=== PATIENT | female | born 1955 | race Hispanic/Latino ===

== ENCOUNTER → 2022-10-13 | Outpatient (CLI) | payer MEDICARE | END | disposition home or self-care (01) | LOC: RAH 10:27 | PROVIDERS: ATTEND Internal Medicine Gastroenterology | DX: R14.0 Abdominal distension (gaseous) (principal); R10.10 Upper abdominal pain, unspecified | CPT/HCPCS: 78264; A9541 ==

== ENCOUNTER 2022-10-17 12:48 | Emergency (ER) | payer MEDICARE ==
[~2022-10-17] VITALS: Ht 149.9 cm; Wt 58.1 kg
[2022-10-17 14:15] VITALS: BP 143/62
[2022-10-17 14:57] LABS: BASOPHILS % (AUTO) 1.1 % (0.0-5.0); EOSINOPHILS % (AUTO) 2.2 % (0.0-8.0); LYMPHOCYTES % (AUTO) 33.9 % (21.0-51.0); MEAN CORPUSCULAR HGB CONC 36.1 g/dL (32.0-36.0); MEAN CORPUSCULAR VOLUME 88.7 fL (79-99); NEUTROPHILS % (AUTO) 55.4 % (40.0-77.0); PLATELET COUNT (AUTO) 88 K/uL (130-400); RED BLOOD CELL COUNT(AUTO) 4.06 MIL/uL (4.00-5.50); RED CELL DISTRIBUTION WIDTH 13.6 % (11.0-15.5); WHITE BLOOD COUNT (AUTO) 5.5 K/uL (4.8-10.8)
[2022-10-17] MEDS ORDERED: DICYCLOMINE HCL 10 MG/5 ML ML PO ONE (15:00)
[2022-10-17] MEDS ORDERED: MAG/ALUM/SIMETH 30 ML UDCUP PO ONE (15:00)
[2022-10-17] MEDS ORDERED: LIDOCAINE HCL 2% VISCOUS 15 ML UDCUP PO ONE (15:00)
[2022-10-17] MEDS ORDERED: ONDANSETRON 4MG INJ IVP ONE (15:00)
[2022-10-17 15:09] LABS: POTASSIUM 3.2 mmol/L (3.5-5.1)
[2022-10-17 15:13] LABS: ALBUMIN 3.9 g/dL (3.5-5.0); TOTAL PROTEIN, SERUM 7.9 g/dL (6.0-8.3)
[2022-10-17 15:17] LABS: PLATELET MORPHOLOGY DECREASED
[2022-10-17 17:04] LABS: APPEARANCE,URINE CLEAR (CLEAR); BILIRUBIN,URINE NEGATIVE (NEGATIVE); COLOR,URINE LIGHT-YELLOW (YELLOW); GLUCOSE, URINE (UA) NEGATIVE (NEGATIVE); KETONES,URINE NEGATIVE (NEGATIVE); LEUKOCYTE ESTERASE ,URINE NEGATIVE Leu/uL (NEGATIVE); NITRATE,URINE NEGATIVE (NEGATIVE); OCCULT BLOOD,URINE NEGATIVE (NEGATIVE); PH,URINE 5.5 (5.0-8.0); PROTEIN,URINE NEGATIVE (NEGATIVE); UROBILINOGEN,URINE 0.2 mg/dL (0.2-1.0)
[2022-10-17 17:07] LABS: RBC,URINE 0-1 /HPF (0-1); SQUAMOUS EPITHELIAL CELL,UR RARE /HPF (0-2); WBC,URINE 0-1 /HPF (0-1)
== END 2022-10-17 16:10 | disposition home or self-care (01) ==
LOC: EDH 12:48
DX: K80.20 Calculus of gallbladder without cholecystitis without obstruction (principal); I10 Essential (primary) hypertension; Z79.899 Other long term (current) drug therapy
CPT/HCPCS: 99285; 96374; 76705; 71045; 84484; 80053; 83690; 85025; 81001; 36415; 93005; J2405

== ENCOUNTER 2024-07-25 10:11 | Emergency (ER) | payer MEDICARE, OTHER ==
[~2024-07-25] VITALS: Ht 149.9 cm; Wt 59.0 kg
[2024-07-25 10:19] VITALS: BP 204/97; PULSE 84; RESP 18; TEMP 97.7
[2024-07-25 10:44] LABS: APPEARANCE,URINE CLEAR (CLEAR); BILIRUBIN,URINE NEGATIVE (NEGATIVE); COLOR,URINE LIGHT-YELLOW (YELLOW); GLUCOSE, URINE (UA) NEGATIVE (NEGATIVE); KETONES,URINE NEGATIVE (NEGATIVE); LEUKOCYTE ESTERASE ,URINE NEGATIVE Leu/uL (NEGATIVE); NITRATE,URINE NEGATIVE (NEGATIVE); OCCULT BLOOD,URINE NEGATIVE (NEGATIVE); PROTEIN,URINE NEGATIVE (NEGATIVE); UROBILINOGEN,URINE 0.2 mg/dL (0.2-1.0)
[2024-07-25 10:45] LABS: ADD UA MICROSCOPIC NO
[2024-07-25 10:58] LABS: BASOPHILS # (AUTO) 0.04 K/uL (0.00-0.20); BASOPHILS % (AUTO) 0.8 % (0.0-5.0); EOSINOPHILS # (AUTO) 0.11 K/uL (0.00-0.70); EOSINOPHILS % (AUTO) 2.2 % (0.0-8.0); HEMATOCRIT 36.3 % (36-48); IMMATURE GRANULOCYTE ABSOLUTE 0.01 K/uL (0-1); LYMPHOCYTES # (AUTO) 1.1 K/uL (1.0-4.8); LYMPHOCYTES % (AUTO) 21.9 % (21.0-51.0); MEAN CORPUSCULAR HEMOGLOBIN 32.6 pg (27.0-33.0); MEAN CORPUSCULAR VOLUME 93.3 fL (79-99); MONOCYTES # (AUTO) 0.4 K/uL (0.1-1.0); MONOCYTES % (AUTO) 7.2 % (3.0-13.0); NEUTROPHILS # (AUTO) 3.4 K/uL (1.8-7.7); NEUTROPHILS % (AUTO) 67.7 % (40.0-77.0); PLATELET COUNT (AUTO) 75 K/uL (130-400); RED BLOOD CELL COUNT(AUTO) 3.89 MIL/uL (4.00-5.50)
[2024-07-25 11:01] LABS: CREATININE 0.7 mg/dL (0.5-1.0); POTASSIUM 3.5 mmol/L (3.5-5.1)
[2024-07-25 11:23] LABS: INR 1.18 (0.85-1.15)
[2024-07-25 11:24] LABS: PARTIAL THROMBOPLASTIN TIME 33.3 SEC (26.3-35.5)
[2024-07-25] MEDS: morPHINE 2 MG SYG IVP ONE (11:24)
[2024-07-25] MEDS: ondanSETRON 4MG INJ IVP ONE (11:24)
[2024-07-25] MEDS ORDERED: IOHEXOL-350 75 ML VIAL IV ONE (12:19)
--- NOTE | 2024-07-25 12:27 | HMCIMG ---
Exam Type: CHEST 1VW Clinical Information: sob Comparison: None Findings: The lungs are clear of infiltrates. The heart is normal in size. The bony and soft tissue structures of the chest are unremarkable. Impression: Clear lungs.
--- NOTE | 2024-07-25 12:57 | HMCIMG ---
Exam Type: CT ABDOMEN AND PELVIS WITH ORAL AND IV CONTRAST Clinical Information: r/o incarcerated hernia Comparison: Contrast: 100 cc's Isovue 370 IV, no complications or adverse reactions Technique: Routine helical scanning at 5mm collimation through the abdomen and pelvis was performed after oral contrast administration. The examination was done before and after IV contrast administration as well. Intermediate and 7 minute delayed post IV contrast administration images were performed, for adequate contrast distention of the urinary collecting systems, ureters and the urinary bladder. CT Dose Index (CTDI): 4.38 mGy Dose Length Product (DLP): 197.9 total mGy-cm Findings: No evidence of nephro or ureterolithiasis is found. No hydronephrosis or ureteral dilatation is seen. The lung bases are clear. The stomach is unremarkable. It shows no wall thickening. No gross ulceration is seen. It is not overly distended. There are no surrounding inflammatory changes. No wall lesions are identified to suggest cancer. The spleen is enlarged. The liver is irregular in contour consistent with given history of cirrhosis. There are splenic hilar varices and varices of the gastroesophageal junction. There is ascites. These findings are consistent with portal venous hypertension. The pancreas shows normal anatomy. It is not fatty replaced. It shows no lesions. The pancreatic duct is not dilated. The gallbladder is surgically absent. The adrenal glands are unremarkable. There is no enlargement. No lesions are noted. The appendix is unremarkable. It shows no evidence of inflammation. No appendicolith is seen. The small bowel is unremarkable. There is no evidence of dilatation to suggest obstruction. No evidence of adynamic ileus is seen. There is no small bowel wall thickening to suggest enteritis. There is diverticulosis. There is no evidence of acute inflammation to suggest diverticulitis. The colon is otherwise unremarkable. The urinary bladder is unremarkable. There is no wall thickening to suggest tumor or inflammation. There are no intraluminal calculi. There are no diverticula. There is no evidence of chronic bladder outlet obstruction. There is no evidence of urinary bladder distention to suggest urinary retention. Umbilical hernia is seen containing only peritoneal fat and minimal ascitic fluid. The bony and vascular structures are unremarkable for the patient's age. IMPRESSION: Findings consistent with cirrhosis and portal venous hypertension. This study was performed using dose reduction techniques to include automated exposure control and/or adjustment of the mA and/or kV according to patient size to include automated exposure control and/or adjustment of the mA and/or kV according to patient size.
[2024-07-25] MEDS ORDERED: POLY17PO4 PO (14:14)
--- NOTE | 2024-07-25 14:21 | ERN ---
General Chief Complaint: Abdominal Pain Stated Complaint: SENT BY DR HERNIA Time Seen by MD: 10:21 Time Seen by Midlevel: 10:21 Source: patient History of Present Illness Initial Comments Patient is a 68-year-old female with a past medical history of liver cirrhosis presenting to the emergency department with an umbilical hernia. The patient was seen at her primary care doctor's office today for pain over her umbilical region. They performed an ultrasound which revealed a hernia. She was sent to the ER to rule out incarceration/obstruction. On arrival patient does report chronic constipation but states her umbilical pain has been worsening over the last couple of days. Denies any nausea, vomiting, or any other symptoms at this time. Allergies: Coded Allergies: dexamethasone (Unverified Allergy, Unknown, 10/17/22) Home Meds Active Scripts Polyethylene Glycol 3350 (Miralax) 17 Gram Powd.pack, 17 GM PO DAILY for constipation, #20 PACKET 0 Refills Prov:YAZAN MODI 07/25/24 Past Medical History Past Medical History: Hypertension, Hypothyroid, Kidney Stone Medical History Other: OSTEOPOROSIS, Past Surgical History: Cholecystectomy Surgical History Other: SINUS SX ROS Dictation CONSTITUTIONAL: Negative except for HPI HEAD/FACE: Negative except for HPI EENT: Negative except for HPI RESPIRATORY: Negative except for HPI GASTROINTESTINAL/ABDOMINAL: Negative except for HPI GENITOURINARY: Negative except for HPI MUSCULOSKELETAL: Negative except for HPI INTEGUMENTARY: Negative except for HPI NEUROLOGICAL/PSYCH: Negative except for HPI HEMATOLOGIC/LYMPHATIC: Negative except for HPI All Systems Negative, Except as noted above. 13 point review of systems assessed and all negative except for above. Physical Exam Physical Exam Dictation Vital Signs reviewed General Appearance: Alert, oriented x 3, no acute distress, well developed, nourished. Head and Face: non-traumatic. Eyes: PERRL, pink conjunctivas, eyelid no trauma, anterior chamber with arcus senilis. Ears: Pinnas intact and no signs of trauma or erythema ear canals clear and no discharge TM no erythema Nose: No discharge, no bleeding. Oropharynx: Mouth normal, tongue pink, pharynx clear,no erythema, tonsils no exudates, no abscesses noted, mucous membrane moist Neck: Supple, non-tender, no thyromegaly, no masses, no JVD, no bruits Breast:Deferred Chest:No tenderness, no crepitus, no paradoxical movement, no retractions Lungs:Clear, well-ventilated, symmetric, no rales, no wheezing, no rhonchi, no stridor, good breath sounds bilaterally Heart: Regular rate, regular rhythm, no murmur, no gallops Vascular: no peripheral edema, Abdomen: Soft, positive bowel sounds, nondistended, no guarding, Mild Periumbilical tenderness, no rebound, no masses no hepatomegaly, no splenomegaly, no Márquez's sign, no hernias. Rectal: Deferred Genital: Deferred Neurological: Normal speech, motor function intact, sensory function intact Musculoskeletal: Neck nontender, full range of motion, back nontender, full range of motion, Extremities: nontender, full range of motion Skin: Color pink, dry, no turgor, no rash, no lacerations, no abrasions, no contusions. Lymphatic: Deferred Results Laboratory and Microbiology Lab and Micro Result Laboratory Tests Test 07/25/24 10:35 07/25/24 10:45 Urine Color LIGHT-YELLOW (YELLOW) Urine Appearance CLEAR (CLEAR) Urine pH 7.0 (5.0-8.0) Urine Specific [place] 1.011 (1.001-1.031) Urine Protein NEGATIVE mg/dL (NEGATIVE) Urine Glucose (UA) NEGATIVE mg/dL (NEGATIVE) Urine Ketones NEGATIVE mg/dL (NEGATIVE) Urine Occult Blood NEGATIVE (NEGATIVE) Urine Nitrate NEGATIVE (NEGATIVE) Urine Bilirubin NEGATIVE mg/dL (NEGATIVE) Urine Urobilinogen 0.2 mg/dL (0.2-1.0) Urine Leukocyte Esterase NEGATIVE Arnaldo/uL White Blood Count 5.0 K/uL (4.8-10.8) Red Blood Count 3.89 MIL/uL (4.00-5.50) L Hemoglobin 12.7 g/dL (12.0-16.0) Hematocrit 36.3 % (36-48) Mean Corpuscular Volume 93.3 fL (79-99) Mean Corpuscular Hemoglobin 32.6 pg (27.0-33.0) Mean Corpuscular Hemoglobin Concent 35.0 g/dL (32.0-36.0) Red Cell Distribution Width 15.0 % (11.0-15.5) Platelet Count 75 K/uL (130-400) L Mean Platelet Volume 10.7 fL (7.5-10.5) H Immature Granulocyte % (Auto) 0.2 % (0-1) Neutrophils (%) (Auto) 67.7 % (40.0-77.0) Lymphocytes (%) (Auto) 21.9 % (21.0-51.0) Monocytes (%) (Auto) 7.2 % (3.0-13.0) Eosinophils (%) (Auto) 2.2 % (0.0-8.0) Basophils (%) (Auto) 0.8 % (0.0-5.0) Neutrophils # (Auto) 3.4 K/uL (1.8-7.7) Lymphocytes # (Auto) 1.1 K/uL (1.0-4.8) Monocytes # (Auto) 0.4 K/uL (0.1-1.0) Eosinophils # (Auto) 0.11 K/uL (0.00-0.70) Basophils # (Auto) 0.04 K/uL (0.00-0.20) Absolute Immature Granulocyte (auto 0.01 K/uL (0-1) Nucleated Red Blood Cells 0.0 % (0.0-0.19) Prothrombin Time 13.0 SEC (9.6-11.6) H Prothromb Time International Ratio 1.18 (0.85-1.15) H Activated Partial Thromboplast Time 33.3 SEC (26.3-35.5) Sodium Level 145 mmol/L (136-145) Potassium Level 3.5 mmol/L (3.5-5.1) Chloride Level 108 mmol/L (101-111) Carbon Dioxide Level 27 mmol/L (21-32) Blood Urea Nitrogen 7 mg/dL (7-18) Creatinine 0.7 mg/dL (0.5-1.0) Glomerular Filtration Rate Calc 93 mL/min (>90) Random Glucose 99 mg/dL (70-105) Lactic Acid Level 1.3 mmol/L (0.8-2.5) Total Calcium 8.8 mg/dL (8.5-10.1) Troponin I High Sensitivity 7 ng/L (4-50) Labs Reviewed?: Yes MDM MDM: Patient is a 68-year-old female with a past medical history of liver cirrhosis presenting to the emergency department with an umbilical hernia. The patient was seen at her primary care doctor's office today for pain over her umbilical region. They performed an ultrasound which revealed a hernia. She was sent to the ER to rule out incarceration/obstruction. On arrival patient does report chronic constipation but states her umbilical pain has been worsening over the last couple of days. Denies any nausea, vomiting, or any other symptoms at this time. On physical examination the patient was in no acute distress. Initial vital signs are stable. Abdominal examination shows mild periumbilical tenderness. There appears to be a small periumbilical hernia that is easily reducible. Your CBC and chemistries are unremarkable. A CT scan of the abdomen/pelvis was obtained to rule out incarceration however her CT scan shows a small umbilical hernia containing only preperitoneal fat and minimal ascitic fluid. The case was discussed with general surgeon on-call Dr. Brady who states there was no need for emergent intervention at this time. The patient may follow up outpatient. This was discussed with the patient and she was given instructions on how to avoid or worsening hernia. Patient may take [id number] medication for pain. She will ultimately have to follow up with General surgery outpatient for further evaluation. Differential diagnosis: Incarcerated hernia, bowel obstruction, urinary tract infection There are no social concerns with this patient. Prescription drug management Prescriptions will include: None Medical management and examination interpretation discussions were had by me with other qualified healthcare professionals as indicated for the patient's care. ED Course Orders Procedure Category Date Status Time Cbc With Differential LAB 07/25/24 Complete 10:22 Basic Metabolic Panel LAB 07/25/24 Complete 10:22 Pt And Ptt LAB 07/25/24 Complete 10:22 Troponin I High LAB 07/25/24 Complete Sensitivity 10:22 Lactic Acid LAB 07/25/24 Complete 10:22 Chest 1vw RAD 07/25/24 Resulted 10:22 Ct Abdomen/Pelvis CT 07/25/24 Resulted W/Contrast 10:22 Morphine 2mg Syg PHA 07/25/24 Complete (Morphine 2mg Syg) 10:30 Ondansetron 4mg Inj PHA 07/25/24 Complete (Zofran 4mg Inj) 10:30 Type And Screen BBK 07/25/24 Complete 10:22 Urinalysis Profile LAB 07/25/24 Complete 10:37 Iohexol (Omnipaque) PHA 07/25/24 Complete 12:19 Current Medications Medications (Trade) Dose Ordered Sig/Syeda Route PRN Reason Start Time Stop Time Status Last Admin Dose Admin Iohexol (Omnipaque) 75 ml STK-MED ONCE IV 07/25/24 12:19 07/25/24 12:19 DC Morphine Sulfate (morPHINE 2MG SYG) 2 mg ONCE ONCE IVP 07/25/24 10:30 07/25/24 10:31 DC 07/25/24 11:24 Ondansetron HCl (zoFRAN 4MG INJ) 4 mg ONCE ONCE IVP 07/25/24 10:30 07/25/24 10:31 DC 07/25/24 11:24 Vital Signs Date Time Temp Pulse Resp B/P (MAP) Pulse Ox O2 Delivery O2 Flow Rate FiO2 07/25/24 10:19 97.7 84 18 204/97 99 Room Air 0 [facility] [address] [place] [id number] IMAGING REPORT Signed PATIENT: GHADA ORR MR#: [id number] : 1955 SEX: F AGE: 68 LOCATION: [facility] ORDER 1024 STATUS: REG ER REPORT#: [id number] SERVICE 1022 REASON: r/o incarcerated hernia ORDERING PHYSICIAN: YAZAN MODI PROCEDURE: ABD PEL W - CT ABDOMEN/PELVIS W/CONTRAST Exam Type: CT ABDOMEN AND PELVIS WITH ORAL AND IV CONTRAST Clinical Information: r/o incarcerated hernia Comparison: Contrast: 100 cc's Isovue 370 IV, no complications or adverse reactions Technique: Routine helical scanning at 5mm collimation through the abdomen and pelvis was performed after oral contrast administration. The examination was done before and after IV contrast administration as well. Intermediate and 7 minute delayed post IV contrast administration images were performed, for adequate contrast distention of the urinary collecting systems, ureters and the urinary bladder. CT Dose Index (CTDI): 4.38 mGy Dose Length Product (DLP): 197.9 total mGy-cm Findings: No evidence of nephro or ureterolithiasis is found. No hydronephrosis or ureteral dilatation is seen. The lung bases are clear. The stomach is unremarkable. It shows no wall thickening. No gross ulceration is seen. It is not overly distended. There are no surrounding inflammatory changes. No wall lesions are identified to suggest cancer. The spleen is enlarged. The liver is irregular in contour consistent with given history of cirrhosis. There are splenic hilar varices and varices of the gastroesophageal junction. There is ascites. These findings are consistent with portal venous hypertension. The pancreas shows normal anatomy. It is not fatty replaced. It shows no lesions. The pancreatic duct is not dilated. The gallbladder is surgically absent. The adrenal glands are unremarkable. There is no enlargement. No lesions are noted. The appendix is unremarkable. It shows no evidence of inflammation. No appendicolith is seen. The small bowel is unremarkable. There is no evidence of dilatation to suggest obstruction. No evidence of adynamic ileus is seen. There is no small bowel wall thickening to suggest enteritis. There is diverticulosis. There is no evidence of acute inflammation to suggest diverticulitis. The colon is otherwise unremarkable. The urinary bladder is unremarkable. There is no wall thickening to suggest tumor or inflammation. There are no intraluminal calculi. There are no diverticula. There is no evidence of chronic bladder outlet obstruction. There is no evidence of urinary bladder distention to suggest urinary retention. Umbilical hernia is seen containing only peritoneal fat and minimal ascitic fluid. The bony and vascular structures are unremarkable for the patient's age. IMPRESSION: Findings consistent with cirrhosis and portal venous hypertension. This study was performed using dose reduction techniques to include automated exposure control and/or adjustment of the mA and/or kV according to patient size to include automated exposure control and/or adjustment of the mA and/or kV according to patient size. DICTATED BY: ANITRA MANNING MD DATE: 07/25/24 1253 ELECTRONICALLY SIGNED BY: ANITRA MANNING MD DATE: 07/25/24 1257 DX & DISP Disposition: Discharge Departure Impression: Primary Impression: Umbilical hernia without obstruction or gangrene Condition: Stable Scripts Polyethylene Glycol 3350 (Miralax) 17 Gram Powd.pack 17 GM PO DAILY for constipation, #20 PACKET 0 Refills Prov: YAZAN MODI 07/25/24 Additional Instructions: Your blood work today is unremarkable. Your urinalysis does not show any evidence of infection. Your CT scan of the abdomen/pelvis with contrast reveals a small umbilical hernia containing only fat and minimal ascitic fluid. This was discussed with general surgeon Dr. Brady who states there was no need for emergent intervention at this time. He advises that you follow up outpatient in his clinic for further evaluation. You will need to follow up with your primary care doctor for further evaluation. Referrals: ROOSEVELT ROBERTS MD (PCP) CANDIDO BRADY MD Time of Disposition: 14:13 I have reviewed the case, and I agree with, Diagnosis and Plan I performed the substantive portion of the visit. I have reviewed and personally made and approve the management plan that is documented in the note by myself or the TRELL. I acknowledge for responsibility for the patient's management plan. YAZAN MODI Jul 25, 2024 14:21 ARCHIE BARRIOS DO Jul 25, 2024 18:42
== END 2024-07-25 15:40 | disposition home or self-care (01) ==
LOC: EDH 10:11
DX: K42.9 Umbilical hernia without obstruction or gangrene (principal); E03.9 Hypothyroidism, unspecified; I10 Essential (primary) hypertension; K59.09 Other constipation; M81.0 Age-related osteoporosis without current pathological fracture; Z79.01 Long term (current) use of anticoagulants; Z90.49 Acquired absence of other specified parts of digestive tract
CPT/HCPCS: 99285; 74177; 96374; 71045; 96375; 84484; 80048; 85025; 85610; 85730; 86850; 86900; 86901; 83605; 81003; 36415; J2270; J2405; Q9967

== ENCOUNTER 2024-11-15 05:40 | Day surgery (SDC) | payer OTHER ==
[2024-11-14 14:39] VITALS: BP 132/60; PULSE 80; RESP 18; TEMP 98.2
[2024-11-14 14:41] LABS: ADD UA MICROSCOPIC YES; APPEARANCE,URINE CLEAR (CLEAR); BILIRUBIN,URINE NEGATIVE (NEGATIVE); COLOR,URINE COLORLESS (YELLOW); GLUCOSE, URINE (UA) NEGATIVE (NEGATIVE); KETONES,URINE NEGATIVE (NEGATIVE); LEUKOCYTE ESTERASE ,URINE NEGATIVE Leu/uL (NEGATIVE); NITRATE,URINE NEGATIVE (NEGATIVE); OCCULT BLOOD,URINE NEGATIVE (NEGATIVE); PH,URINE 6.5 (5.0-8.0); PROTEIN,URINE NEGATIVE (NEGATIVE); UROBILINOGEN,URINE 0.2 mg/dL (0.2-1.0)
[2024-11-14 14:42] LABS: BASOPHILS % (AUTO) 1.2 % (0.0-5.0); EOSINOPHILS # (AUTO) 0.25 K/uL (0.00-0.70); EOSINOPHILS % (AUTO) 3.1 % (0.0-8.0); HEMATOCRIT 37.4 % (36-48); IMMATURE GRANULOCYTE ABSOLUTE 0.03 K/uL (0-1); LYMPHOCYTES # (AUTO) 2.1 K/uL (1.0-4.8); LYMPHOCYTES % (AUTO) 25.9 % (21.0-51.0); MEAN CORPUSCULAR HEMOGLOBIN 32.4 pg (27.0-33.0); MEAN CORPUSCULAR VOLUME 95.4 fL (79-99); MONOCYTES # (AUTO) 0.7 K/uL (0.1-1.0); MONOCYTES % (AUTO) 8.8 % (3.0-13.0); NEUTROPHILS % (AUTO) 60.6 % (40.0-77.0); PLATELET COUNT (AUTO) 131 K/uL (130-400); RED BLOOD CELL COUNT(AUTO) 3.92 MIL/uL (4.00-5.50); RED CELL DISTRIBUTION WIDTH 14.4 % (11.0-15.5); WHITE BLOOD COUNT (AUTO) 8.2 K/uL (4.8-10.8)
[2024-11-14 14:46] LABS: BACTERIA,URINE RARE /HPF (None Seen); SQUAMOUS EPITHELIAL CELL,UR RARE /HPF (0-2)
[2024-11-14 14:50] LABS: INR 1.28 (0.85-1.15); PROTHROMBIN TIME 13.2 SEC (9.6-11.6)
[2024-11-14 14:58] LABS: ALBUMIN 2.8 g/dL (3.5-5.0); BILIRUBIN,TOTAL 1.2 mg/dL (0.2-1.0); CREATININE 0.8 mg/dL (0.5-1.0); TOTAL PROTEIN, SERUM 6.8 g/dL (6.0-8.3)
[2024-11-14 15:06] LABS: POTASSIUM 2.8 mmol/L (3.5-5.1)
--- NOTE | 2024-11-14 15:25 | NUR ---
RE: LABS REPORTED PT 13.2/INR 1.28, K 2.8. ALSO INFORMED DR CRAWFORD THAT PATIENT STARTED LEVOFLOXACIN YESTERDAY AND PROMETHAZINE FOR COUGH. RECEIVED ORDERS TO HAVE PATIENT EAT 3-4 BANANAS TONIGHT AND REPEAT POTASSIUM IN AM AND CXR IN AM.
--- NOTE | 2024-11-14 16:45 | NUR ---
SPOKE WITH PATIENT AND INSTRUCTED HER TO EAT 3-4 BANANAS THIS EVENING, PATIENT VERBALIZED UNDERSTANDING
--- NOTE | 2024-11-14 19:23 | EKG ---
[facility] Test Date: 2024-11-14 Test Time: 14:25:04 Pat Name: GHADA GARCIADep[facility] Gender: F Pump Installer: [id number] : 1955 Requested By: JUAN DAVID CRAWFORD Order Number: [id number] Reading MD: Emmanuel Mcdaniel Measurements Intervals [place] Rate: 76 P: 27 OR: 165 QRS: -11 QRSD: 90 T: 3 QT: 414 QTc: 465 Interpretive Statements Sinus rhythm Compared to ECG 10/17/2022 14:47:45 No significant changes Electronically Signed On 11-18-2024 22:10:49 CDT by Emmanuel Mcdaniel Please click the below link to view image of tracing.
[~2024-11-15] VITALS: Ht 149.9 cm; Wt 63.4 kg
[2024-11-15] VITALS (14 sets, daily range): BP systolic 100–150; BP diastolic 51–75; PULSE 72–90; RESP 16–20; TEMP 97.4–97.6
[~2024-11-15 05:40] MED LIST: ALEN70TA80 PO; AMLO-257 PO; FURO20TA4 PO; GABA-529 PO; LEVO-70 PO; LEVO50CA5 PO; LISI20TA24 PO; MILK175T2 PO; PIOG15TA66 PO; PROM6.2523 PO
[2024-11-15] MEDS ORDERED: ceFAZolin SODIUM 2 GM VIAL ONE (06:19)
[2024-11-15] MEDS: LACTATED RINGERS 1000ML 1,000 ML IV ONE (06:52)
[2024-11-15] MEDS ORDERED: BUPIvacaine/PF 0.25% 30ML VIAL IJ ONE (07:34)
--- NOTE | 2024-11-15 09:29 | HMCIMG ---
CHEST 1VW HISTORY: Cough COMPARISON: 07/25/2024 FINDINGS: A frontal projection of the chest was obtained. No acute pulmonary infiltrates is seen. The heart is borderline enlarged. Prominent interstitial markings are seen. Aortic calcifications are seen. Degenerative changes are seen. IMPRESSION: 1. No acute pulmonary infiltrate is seen.
[2024-11-15] MEDS ORDERED: FENTanyl CITRate PF 50 MCG/1 ML 2ML VIAL ONE ×3 (09:41→12:00)
[2024-11-15] MEDS ORDERED: rocuRONium bROMide 10MG/1ML 5ML VL ONE (09:41)
[2024-11-15] MEDS ORDERED: proPOFol 10 MG/ML 20ML VIAL IV ONE (09:41)
[2024-11-15] MEDS ORDERED: ondanSETRON 4MG INJ ONE (09:41)
[2024-11-15] MEDS ORDERED: MIDAZOLAM HCL 1 MG/ML 2ML VIAL ONE (09:41)
[2024-11-15] MEDS ORDERED: phenylEPHRINE HCL 10 MG/ML 1ML VIAL IV ONE (10:20)
[2024-11-15] MEDS ORDERED: ROPivacaine 0.5% 5MG/ML 30ML ONE ×2 (10:23→10:41)
[2024-11-15] MEDS ORDERED: LIDOCAINE 2%-EPI 1:200,000 20 ML VIAL IJ ONE (10:23)
[2024-11-15] MEDS ORDERED: acetaMINOPHEN 0 ML ONE (10:57)
[2024-11-15] MEDS: BUPIvacaine/PF 0.25% 30ML VIAL IJ ONE (11:05)
[2024-11-15] MEDS ORDERED: SUGAMMADEX SODIUM 200 MG/2 ML VIAL IV ONE (11:45)
[2024-11-15] MEDS ORDERED: ALBUMIN (HUMAN) 5% 250 ML IV ONE (11:45)
[2024-11-15] MEDS: ketOROlac 15MG/ML VIAL (15MG/ML) ONE (12:25)
[2024-11-15] MEDS: FENTanyl CITRate PF 50 MCG/1 ML 2ML VIAL ONE (12:26)
[2024-11-15] MEDS: metoCLOPRAmide 10 MG/2 ML VIAL ONE (12:27)
--- NOTE | 2024-11-15 13:16 | OP ---
Operative Note: DATE OF PROCEDURE: 11/15/24 SURGEON: JUAN DAVID CRAWFORD MD SOFTWARE EDUCATOR: [] PREOPERATIVE DIAGNOSIS: Umbilical hernia POSTOPERATIVE DIAGNOSIS: 2cm umbilical hernia incarcerated, large volume ascites PROCEDURE: Robotic umbilical hernia repair with mesh placement, aspiration of 1.5 L of ascites fluid INDICATIONS: Patient with symptomatic umbilical hernia DESCRIPTION OF PROCEDURE: Patient is brought to the operating room placed on the operating table in the supine position. Once general endotracheal anesthesia is achieved patient's abdomen is prepped and draped in sterile fashion. We created a small brie incision in left upper quadrant at Mena's point. Under direct visualization with Optiview went through the abdominal wall and entered the abdominal cavity. And pneumoperitoneum obtained. And then under direct visualization proceeded to introduce other 8 mm trochars one in the right upper quadrant, another one at the epigastric region. And then switched out the 5 mm trocar from the left upper quadrant to an 8 mm trocar. We then brought the robot over top of the patient's right flank and proceeded to dock it. We then proceeded to develop the peritoneal flap with the scissors with cautery was started before the defect and then went past the defect took down the hernia sac with sharp and blunt dissection. Once down all the hernia sac was reduced and we had developed our peritoneal flap past the level of the defect then proceeded to introduce the ruler and measured the defect at 2 cm. We then proceeded to introduce an 7.8 cm Phasix mesh that will give us enough overlay. And then with OV lock proceeded to close the defect primarily. Once the defect was completely closed we proceeded to place the mesh and the underlay fashion. And secured it to the abdominal wall using 2 OV lock. And then closed our peritoneal flap to cover the mesh completely. The peritoneal flap was closed with a 2 OV lock as well. No bleeding was observed no injuries noted. There was a large volume of fluid within the abdomen. The looked murky. Decision is made to suction out with a hand-held laparoscopic suction 1.5 L of fluid and sent it for cytology and cultures. The robot is undocked all needles are removed from the abdomen. We removed our trochars. Skin incisions were closed with 4-0 Monocryl running subcuticular fashion and Dermabond. Patient tolerated the procedure well ESTIMATED BLOOD LOSS: 5 cc Devices left in place: Circular mesh 7.8 cm diameter. See implant report for detail. Anesthesia: General endotracheal Complications: None immediate Specimens removed: Culture and cytology from peritoneal fluid JUAN DAVID CRAWFORD MD November 15, 2024 13:16
== END 2024-11-15 13:34 | disposition home or self-care (01) ==
LOC: DAH 05:40
PROVIDERS: ATTEND Student in an Organized Health Care Education/Training Program
DX: K42.0 Umbilical hernia with obstruction, without gangrene (principal); R18.8 Other ascites; K74.60 Unspecified cirrhosis of liver; I10 Essential (primary) hypertension; J32.8 Other chronic sinusitis; E07.9 Disorder of thyroid, unspecified; Z79.01 Long term (current) use of anticoagulants; Z90.49 Acquired absence of other specified parts of digestive tract; Z79.899 Other long term (current) drug therapy; Z79.890 Hormone replacement therapy; Z88.8 Allergy status to other drugs, medicaments and biological substances
CPT/HCPCS: 80053; 85025; 85610; 81001; 36415 ×2; 93005; 49592; 49082; 64488; 84132; 87071; 87076; 87205; 88108; 88305; 71045; A6260; J1885; C1781; A4663; J7030; J7120 ×2; P9045; J3010 ×4; J0665 ×2; J3490 ×2; J2250; J2704; J2405; J2765; J2795 ×2; J2371; J0690 ×2; A4930; A4215; A4223; A4222; A4221

== ENCOUNTER → 2024-12-03 | Outpatient (CLI) | payer OTHER ==
--- NOTE | 2024-12-03 09:50 | NUR ---
U/S GD PARACENTESIS PROCEDURE PERFORMED BY DR Margie NASH. PUNCTURE SITE LLQ AND PATIENT TOLERATED PROCEDURE WELL. TOTAL REMOVED 3.2 LITERS OF CLOUDY YELLOW FLUID. END OF PROCEDURE AT 0920. CATHETER REMOVED AND DRESSING APPLIED. NO BLEEDING NOTED. DISCHARGE INSTRUCTIONS GIVEN TO PATIENT AND VERBALIZED UNDERSTANDING. DISCHARGED VIA AMBULATION AT 0950. AAO X3 WITH NO C/O PAIN.
--- NOTE | 2024-12-03 17:38 | HMCIMG ---
US ABDOMINAL PARACENTESIS IR HISTORY: No additional history given. COMPARISON: None TECHNIQUE: Informed consent was obtained. Risks and benefits were explained to the patient. A timeout was performed. Patient was prepped and draped in a sterile fashion. Local anesthetics was given as required. Under ultrasound guidance, ascites fluid was localized. Paracentesis was performed. FINDINGS: 3.2 L of yellowish fluid was aspirated. Less than 2 cc blood loss is noted. Patient tolerated procedure without complication. Patient left the department in good condition. IMPRESSION: 1. Uncomplicated ultrasound-guided paracentesis.
== END | disposition home or self-care (01) ==
LOC: RAH 07:06
PROVIDERS: ATTEND Student in an Organized Health Care Education/Training Program
DX: R18.8 Other ascites (principal); I10 Essential (primary) hypertension; K42.9 Umbilical hernia without obstruction or gangrene; Z90.49 Acquired absence of other specified parts of digestive tract; Z98.890 Other specified postprocedural states; Z88.8 Allergy status to other drugs, medicaments and biological substances; Z79.899 Other long term (current) drug therapy
CPT/HCPCS: 49083; C1729

== ENCOUNTER → 2024-12-18 | Outpatient (CLI) | payer OTHER ==
[2024-12-18 08:33] LABS: IMMATURE GRANULOCYTE ABSOLUTE 0.01 K/uL (0-1); NUCLEATED RED BLOOD CELLS 0.0 % (0.0-0.19); PLATELET COUNT (AUTO) 74 K/uL (130-400); RED BLOOD CELL COUNT(AUTO) 3.75 MIL/uL (4.00-5.50); RED CELL DISTRIBUTION WIDTH 14.6 % (11.0-15.5); WHITE BLOOD COUNT (AUTO) 5.0 K/uL (4.8-10.8)
--- NOTE | 2024-12-18 08:40 | NUR ---
U/S GD PARACENTESIS NOT DONE U/S PERFORMED BY Juan SMALL RDMS. IMAGES REVIEWED BY DR GALARZA. NOT ENOUGH FLUID TO SAFELY PERFORM PROCEDURE. INFORMED PT OF OUTCOME. VERBALIZED UNDERSTANDING. DISCHARGE VIA AMBULATORY. DENIES PAIN. A&O.
[2024-12-18 08:43] LABS: INR 1.25 (0.85-1.15)
[2024-12-18 08:50] LABS: ASPARTATE AMINOTRANSFERASE 51.0 U/L (10-37); CREATININE 0.8 mg/dL (0.5-1.0); GLOMERULAR FILTR. RATE CALC 79.0 mL/min (>90); GLUCOSE,RANDOM 98.0 mg/dL (70-105); SODIUM SERUM 142.0 mmol/L (136-145); TOTAL PROTEIN, SERUM 7.0 g/dL (6.0-8.3); UREA NITROGEN, BLOOD 14.0 mg/dL (7-18)
--- NOTE | 2024-12-18 13:22 | HMCIMG ---
Percutaneous ultrasound guided paracentesis CLINICAL HISTORY: 69 year-old female with intractable ascites. PROCEDURE: Under ultrasound guidance left upper quadrant was localized with large ascites pocket. After sterile prep and drape 1% Xylocaine was used for local anesthetic. A Yueh needle was introduced and total of 10 L of ascitic fluid removed. Patient tolerated procedure well. IMPRESSION: Abdominal paracentesis performed with removal with 10 L of ascitic fluid. This is amenable for possible TIPS procedure.
== END | disposition home or self-care (01) ==
LOC: RAH 08:08
PROVIDERS: ATTEND Internal Medicine Gastroenterology
DX: R18.8 Other ascites (principal); Z79.01 Long term (current) use of anticoagulants
CPT/HCPCS: 36415; 76705; 80053; 85025; 85610; 85730

== ENCOUNTER → 2025-01-03 | Outpatient (CLI) | payer OTHER ==
[~2025-01-03] MED LIST changes: +IOHEXOL 350 MG/ML 100ML INFUS..BTL IV ONE
--- NOTE | 2025-01-04 09:54 | HMCIMG ---
EXAM: CT Abdomen with oral, without and with IV contrast CLINICAL HISTORY: Abnormality of alpha-fetoprotein. TECHNIQUE: Axial computed tomography images of the abdomen with oral, without and with intravenous contrast. CONTRAST: with oral, without and with intravenous contrast. COMPARISON: US abdomen study dated December 18, 2024, and CT abdomen and pelvis study dated July 25, 2024. FINDINGS: LUNG BASES: Bibasilar streaky atelectasis is present. No pleural effusions are seen. LIVER: Again noted is nodular contour of the liver, suggestive of cirrhosis. No suspicious mass. GALLBLADDER AND BILE DUCTS: The gallbladder is surgically absent. The bile ducts are mildly prominent. PANCREAS: Unremarkable. SPLEEN: Again noted is splenomegaly, measuring 15 cm in length and demonstrates capsular calcifications, without significant interval change. ADRENAL GLANDS: Unremarkable. KIDNEYS /T/ URETERS: The kidneys appear within normal limits. There is no hydronephrosis or hydroureter. No urinary calculi are seen. STOMACH AND BOWEL: Unremarkable appearance of the stomach and bowel. No evidence of bowel obstruction. No evidence suggesting enteritis or colitis. There are multiple colonic diverticula without evidence of diverticulitis. APPENDIX: No evidence of acute appendicitis on CT examination. PERITONEUM: Again noted is minimal perihepatic fluid, without significant interval change. No free air. LYMPH NODES: No significant lymphadenopathy is evident. VASCULATURE: No evidence of abdominal aortic aneurysm. The portal and splenic veins are patent and dilated. Again noted are a few portomesenteric collaterals. BONES: No aggressive-appearing osseous lesion. No acute osseous pathology is evident. The bones are osteopenic. Degenerative changes are seen in the spine. The other findings and details are grossly stable since the prior examination. IMPRESSION: Cirrhosis of the liver. No focal hepatic lesions. Splenomegaly. Trace perihepatic ascites. No evidence of bowel obstruction. Other findings as described above. No significant interval change. /Padma
== END | disposition home or self-care (01) ==
LOC: RAH 08:35
PROVIDERS: ATTEND Internal Medicine Gastroenterology
DX: K74.60 Unspecified cirrhosis of liver (principal); R16.1 Splenomegaly, not elsewhere classified; K57.30 Diverticulosis of large intestine without perforation or abscess without bleeding; D73.89 Other diseases of spleen; M47.816 Spondylosis without myelopathy or radiculopathy, lumbar region; J98.11 Atelectasis; R77.2 Abnormality of alphafetoprotein; Z90.49 Acquired absence of other specified parts of digestive tract
CPT/HCPCS: 74170; Q9967